=== PATIENT | male | born 1985 | race Two or more races ===

== ENCOUNTER 2018-03-04 09:43 | Emergency (ER) | payer BC ==
[~2018-03-04] VITALS: Ht 170.2 cm; Wt 80.7 kg
[2018-03-04] MEDS ORDERED: NKM (09:51)
[2018-03-04 09:57] VITALS: BP 123/85
--- NOTE | 2018-03-04 10:52 | Diagnostic Imaging Report ---
Indication: Cough Technique: XRAY Chest 1v Comparison: None Findings: Low lung volumes. Heart size poorly evaluated due to low lung volumes and AP technique. Mild cardiomegaly not excluded. Mediastinal contours appear sharp. There is no focal consolidation, pneumothorax or pleural effusion. Osseous structures demonstrate no acute abnormality. Impression: Limited exam with low lung volumes. No focal airspace consolidation, pleural effusion or pneumothorax.
--- NOTE | 2018-03-04 11:36 | Emergency Room Report ---
History of Present Illness General Chief Complaint: Upper Respiratory Illness Source: Patient Present Illness HPI Patient complains of one week of cough, congestion, fever and sinus pressure. He states the cough has become worse. He denies chest pain or shortness of breath. He denies abdominal pain. He has no other complaints. Allergies: Coded Allergies: No Known Allergies (Unverified , 03/04/18) Patient History Past Medical History: none Past Surgical History: none Social History: Denies: smoking, alcohol use, drug use Reviewed Nursing Documentation: PMH: Agreed; PSxH: Agreed Nursing Documentation-PMH Past Medical History: No Stated History Review of Systems All Other Systems: negative except mentioned in HPI Physical Exam Vital Signs Date Time Temp Pulse Resp B/P (MAP) Pulse Ox O2 Delivery O2 Flow Rate FiO2 03/04/18 09:47 98.2 81 17 123/85 98 Room Air 98.2 Sp02 EP Interpretation: reviewed, normal General Appearance: no apparent distress, alert, GCS 15, non-toxic Head: normocephalic, atraumatic Eyes: bilateral eye normal inspection, bilateral eye PERRL ENT: hearing grossly normal, normal pharynx, no angioedema, normal voice Neck: full range of motion, supple/symm/no masses Respiratory: chest non-tender, lungs clear, normal breath sounds, no respiratory distress, no retraction, no accessory muscle use, speaking full sentences Cardiovascular #1: regular rate, rhythm, no edema Gastrointestinal: normal bowel sounds, non tender, soft, non-distended, no guarding, no rebound Rectal: deferred Musculoskeletal: back normal, gait/station normal, normal range of motion, non- tender Neurologic: alert, oriented x3, responsive, motor strength/tone normal, sensory intact, speech normal Psychiatric: judgement/insight normal, memory normal, mood/affect normal, no suicidal/homicidal ideation Skin: normal color, no rash, warm/dry, well hydrated Medical Decision Making Diagnostic Impression: Primary Impression: Sinusitis Additional Impression: URI (upper respiratory infection) ER Course This patient has a clinical presentation consistent with sinusitis. There are no red flags on physical exam that would make me concerned for meningitis or other complication of sinusitis. Patient overall is nontoxic. Chest x-ray is unremarkable. The patient was educated on nasal irrigation and over-the- counter decongestants. This patient has had worsening symptoms and a thick nasal discharge, therefore I will place the patient a course of antibiotics. The patient is given close return precautions and followup instructions. Chest X-Ray Diagnostic Results Chest X-Ray Diagnostic Results : Chest X-Ray Ordered: Yes # of Views/Limited/Complete: 1 View Indication: Other - cough EP Interpretation: No Interpretation: no consolidation, no effusion, no pneumothorax, no acute cardiopulmonary disease Impression: No acute disease Electronically Signed by: Radu Last Vital Signs Date Time Temp Pulse Resp B/P (MAP) Pulse Ox O2 Delivery O2 Flow Rate FiO2 03/04/18 09:57 98.2 17 123/85 98 Room Air 98.2 03/04/18 09:57 81 Status: improved Disposition: HOME, SELF-CARE Condition: Improved Referrals: [facility],REFERRING (PCP) Shaina Walsh DO Mar 04, 2018 11:36
[2018-03-04] MEDS ORDERED: AUGMENTIN 875-1 EAC1 ORAL (11:37)
[2018-03-04 11:41] VITALS: BP 128/90
== END 2018-03-04 11:41 | disposition home or self-care (01) ==
LOC: EMR 10:15
DX: J32.9 Chronic sinusitis, unspecified (principal); J06.9 Acute upper respiratory infection, unspecified
CPT/HCPCS: 71045; 99283